=== PATIENT | male | born 1990 | race Caucasian/White ===

== ENCOUNTER 2021-01-20 09:44 | Emergency (ER) | payer OTHER ==
[~2021-01-20] VITALS: Ht 170.2 cm; Wt 66.7 kg
[2021-01-20] MEDS ORDERED: NORCO5 PO (11:43)
[2021-01-20] MEDS ORDERED: IBUPROFEN 800800 M1 PO (11:47)
[2021-01-20] MEDS ORDERED: PENICILLIN V P500 MG PO (11:47)
[2021-01-20 11:56] VITALS: BP 131/70
== END 2021-01-20 11:57 | disposition home or self-care (01) ==
LOC: M.ERS 09:44
DX: K02.9 Dental caries, unspecified (principal)